=== PATIENT | female | born 1975 | race Caucasian/White ===

== ENCOUNTER 2017-04-21 05:08 | Emergency (ER) | payer SELFPAY ==
[~2017-04-21] VITALS: Ht 157.5 cm; Wt 80.0 kg
[2017-04-21 05:10] VITALS: BP 122/87; PULSE 85; RESP 18; TEMP 98.9; O2SAT 99
[2017-04-21] MEDS ORDERED: ZOFR4TAB3 SL (05:29)
[2017-04-21] MEDS ORDERED: ONDANSETRON ODT 4 MG TAB PO ONE (05:30)
[2017-04-21] MEDS ORDERED: ACETAMINOPHEN 325 MG TAB PO ONE (05:30)
--- NOTE | 2017-04-21 05:31 | PD ---
HPI Chief Complaint: Medical Clearance Time Seen by Provider: 05:28 Travel History International Travel<30 days: No Contact w/Intl Traveler<30days: No Traveled to known affect area: No History of Present Illness HPI Examined in the presence of a female nurse. 42-year-old female presents for evaluation of opiate withdrawal. 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 She is now having withdrawal symptoms. She is complaining of nausea, vomiting, myalgias. Symptoms are moderate, aggravated by the cessation of opiates. No other complaints at this time. PFSH Past Medical History Diminished Hearing: No Medical other: Yes (OPIATE ADDICCTION) Influenza Vaccination: No ?: Not LMP: PRESENTLY : 5 Para: 5 Miscarriage: 0 : 0 Past Surgical History Other Surgery: Yes (PILONIADAL CYST) Social History Alcohol Use: Yes (BEER SOMETIMES) Tobacco Use: Yes (1/2 PPD) Substance Use: Yes (SNORTS HERION) Allergies-Medications (Allergen,Severity, Reaction): Coded Allergies: No Known Allergies (Unverified , 04/21/17) Reported Meds & Prescriptions Reported Meds & Active Scripts Active Zofran Odt (Ondansetron Odt) 4 Mg Tab 4 Mg SL Q6HR PRN Review of Systems Except as stated in HPI: all other systems reviewed are Neg Physical Exam Narrative GENERAL: Well-nourished female in no acute distress SKIN: Warm and dry. HEAD: Atraumatic. Normocephalic. EYES: Pupils equal and round. No scleral icterus. No injection or drainage. ENT: No nasal bleeding or discharge. Mucous membranes pink and moist. NECK: Trachea midline. No JVD. CARDIOVASCULAR: Regular rate and rhythm. No murmur appreciated. RESPIRATORY: No accessory muscle use. Clear to auscultation. Breath sounds equal bilaterally. GASTROINTESTINAL: Abdomen soft, non-tender, nondistended. Hepatic and splenic margins not palpable. MUSCULOSKELETAL: No obvious deformities. No clubbing. No cyanosis. No edema. NEUROLOGICAL: Awake and alert. No obvious cranial nerve deficits. Motor grossly within normal limits. Normal speech. PSYCHIATRIC: Appropriate mood and affect; insight and judgment normal. Data Data Last Documented VS Vital Signs Date Time Temp Pulse Resp B/P (MAP) Pulse Ox O2 Delivery O2 Flow Rate FiO2 04/21/17 05:10 98.9 85 18 122/87 (99) 99 Room Air Orders Orders Ed Discharge Order (04/21/17 05:28) Ondansetron Odt (Zofran Odt) (04/21/17 05:30) Acetaminophen (Tylenol) (04/21/17 05:30) MDM Medical Decision Making Medical Screen Exam Complete: Yes Emergency Medical Condition: Yes Medical Record Reviewed: Yes Differential Diagnosis Opiate withdrawal, myalgias, gastroenteritis, dehydration Narrative Course The patient will be given a dose of Zofran and Tylenol here and discharged with a short course of Zofran. Diagnosis Primary Impression: Opiate withdrawal [facility] Pt SpecificInfo: Prescription(s) given Scripts Ondansetron Odt (Zofran Odt) 4 Mg Tab 4 MG SL Q6HR Y for Nausea/Vomiting, #20 TAB 0 Refills Prov: Morro Gill MD 04/21/17 Disposition: 01 DISCHARGE HOME Condition: Stable Ricardo Salas Apr 21, 2017 05:31
== END 2017-04-21 05:38 | disposition home or self-care (01) ==
LOC: NEPD 05:08
DX: F11.23 Opioid dependence with withdrawal (principal); F17.200 Nicotine dependence, unspecified, uncomplicated
CPT/HCPCS: 99283